=== PATIENT | male | born 1975 | race Caucasian/White ===

== ENCOUNTER → 2017-05-12 | Outpatient (CLI) | payer MEDICARE ==
[~2017-05-12] MED LIST: AMOXICILLIN500 MG PO; COLCRYS0.6 MG PO; ELAVIL 50 MG TA50 MG PO; ERYTHROMYCIN250 M1 PO; HYGROTON TAB 2525 MG PO; INDERAL TAB 2020 MG PO; MEDROL DOSEPAK 24 MG PO; NEURONTIN 400400 MG PO; NORVASC 5 MG TAB5 MG PO; NORVASC5 MG PO; PANTOPRAZOLE SO40 MG PO; QUETIAPINE FUM200 MG PO; SYNTHROID50 MCG PO; TRAZODONE HCL100 MG PO; ZESTRIL20 MG PO; ZOLOFT100 MG PO; ZYLOPRIM 100 M100 MG PO; [UNRECOGNIZED DRUG - OTHER] PO
== END ==
LOC: NM 09:00
DX: Z80.0 Family history of malignant neoplasm of digestive organs (principal); R93.3 Abnormal findings on diagnostic imaging of other parts of digestive tract
CPT/HCPCS: 78264; A9541